=== PATIENT | female | born 1965 | race Hispanic/Latino ===

== ENCOUNTER 2021-06-18 07:49 | Inpatient (IN) | payer OTHER ==
--- NOTE | 2021-06-18 08:00 | Emergency Department Report ---
ED Neuro Deficit HPI - General Chief Complaint: Neuro Symptoms/Deficit Stated Complaint: STROKE Time Seen by Provider: 06/18/21 07:50 Source: EMS, old records reviewed (No previous [employer] record) Mode of arrival: Stretcher Limitations: Altered Mental Status - History of Present Illness Initial Comments: 55-year-old female the past medical history of obesity and hypertension presents to the hospital with possible stroke. At time a ED arrival patient is nonverbal therefore history obtained from EMS. EMS states that patient went to work about 6 AM with a "migraine". She was getting frustrated because she had some memory issues and could not remember passwords then went into experience right-sided weakness. EMS reports that patient then subsequently developed aphasia and is not speaking currently. Glucose 176 Although patient cannot speak she does not her head yes or no to questions. She states she was neurologically normal when she went to work at 6 AM. She does states she has a history of migraines. She does feel like her headache is secondary to migraine. She denies previous history of stroke, intracranial hemorrhage, and does not endorse current anticoagulation use - Related Data Allergies/Adverse Reactions: Allergies Allergy/AdvReac Type Severity Reaction Status Date / Time Penicillins Allergy Unknown Verified 06/18/21 09:20 ED Review of Systems ROS: Stated complaint: STROKE Other details as noted in HPI Comment: Unobtainable due to pts medical conditions ED Past Medical Hx - Past Medical History Hx Diabetes: Yes Additional medical history: Migraine ED Neuro Physical Exam - General Limitations: Altered Mental Status Suspected Stroke: Yes - NIHSS Assessment Interval: Baseline 1a. Level of Consciousness: alert/keenly responsive 1b. LOC Questions: aphasic 1c. LOC Commands: performs tasks correctly 2. Best Gaze: normal 3. Visual: no visual loss 4. Facial Palsy: normal symmetrical movement 5b. Motor Arm Right: no gravity effort 5a. Motor Arm Left: some gravity effort 6a. Motor Leg Left: some gravity effort 6b. Motor Leg Right: some gravity effort 7. Limb Ataxia: absent 8. Sensory: normal 9. Best Language: severe aphasia 10. Dysarthria: mute/anarrthric 11. Extinction/Inattention: no abnormality Total Score: 15 Stroke Severity: Moderate Stroke - Other Other exam information: General: No acute distress Head: Atraumatic Eyes: normal appearance ENT: Moist mucous membranes Neck: Normal appearance, no midline tenderness Chest: Clear to auscultation bilaterally CV: Regular rate and rhythm Abdomen: Soft, normal bowel sounds, nontender, nondistended, no rebound or guarding Back: Normal inspection Extremity: Normal inspection, full range of motion Neuro: See NIH stroke scale Psych: Appropriate behavior Skin: No rash ED Course Vital Signs 06/18/21 06/18/21 07:53 08:30 Temperature 98.9 F Pulse Rate 96 H Respiratory 20 Rate Blood Pressure 176/90 [Left] O2 Sat by Pulse 97 99 Oximetry - Reevaluation(s) Reevaluation #1: 06/18/21 08:46 06/18/21 08:46 PT CONSENTED FOR TPA, ORDERS PLACED nurse informed 06/18/21 09:10 PT NOW DOES NOT CONSENT FOR TPA AND DECLINES, SHE WAS ABLE TO WHISPER NO TO THE NURSES. I SUSPECT PSYCH/CONVERSION D/O OR COMPLEX MIGRAINE GIVEN INCONSISTENT NEURO EXAM AND B/L WEAKNESS R> L. pt will be treated with Benadryl, Toradol, and Reglan for complex migraine. Aspirin would also be ordered since she declines tPA until stroke evaluation can be completed - Consultations Consultation #1: 06/18/21 08:46 - Lab Data Result diagrams: 06/18/21 08:23 06/18/21 08:23 Lab Results 06/18/21 06/18/21 06/18/21 Range/Units 08:23 08:23 08:23 WBC 8.8 (4.5-11.0) K/mm3 RBC 5.15 H (3.65-5.03) M/mm3 Hgb 14.4 H (10.1-14.3) gm/dl Hct 44.8 H (30.3-42.9) % MCV 87 (79-97) fl MCH 28 (28-32) pg MCHC 32 (30-34) % RDW 13.7 (13.2-15.2) % Plt Count 352 (140-440) K/mm3 Lymph % (Auto) 14.1 (13.4-35.0) % [place]y % (Auto) 5.2 (0.0-7.3) % Eos % (Auto) 2.0 (0.0-4.3) % Baso % (Auto) 0.9 (0.0-1.8) % Lymph # (Auto) 1.2 (1.2-5.4) K/mm3 [place] # (Auto) 0.5 (0.0-0.8) K/mm3 Eos # (Auto) 0.2 (0.0-0.4) K/mm3 Baso # (Auto) 0.1 (0.0-0.1) K/mm3 Seg Neutrophils % 77.8 H (40.0-70.0) % Seg Neutrophils # 6.8 (1.8-7.7) K/mm3 PT 13.5 (12.2-14.9) Sec. INR 0.93 (0.87-1.13) Thrombin Time 17.7 (15.1-19.6) Sec. Sodium 136 L (137-145) mmol/L Potassium 4.5 (3.6-5.0) mmol/L Chloride 101.2 (98-107) mmol/L Carbon Dioxide 21 L (22-30) mmol/L Anion Gap 18 mmol/L BUN 22 H (7-17) mg/dL Creatinine 1.0 (0.6-1.2) mg/dL Estimated GFR 58 ml/min BUN/Creatinine Ratio 22 % Glucose 214 H (65-100) mg/dL Calcium 9.4 (8.4-10.2) mg/dL Total Bilirubin 0.30 (0.1-1.2) mg/dL AST 19 (5-40) units/L ALT 17 (7-56) units/L Alkaline Phosphatase 94 (35-129) units/L Total Creatine Kinase 75 (30-135) units/L CK-MB (CK-2) 1.7 (0.0-4.0) ng/mL CK-MB (CK-2) Rel Index 2.2 (0-4) Troponin T < 0.010 (0.00-0.029) ng/mL Total Protein 6.6 (6.3-8.2) g/dL Albumin 4.2 (3.9-5) g/dL Albumin/Globulin Ratio 1.8 % - EKG Data -: EKG Interpreted by Me EKG shows normal: sinus rhythm, ST-T waves (n osmtie) Rate: normal When compared to previous EKG there are: previous EKG unavailable - Radiology Data Radiology results: report reviewed CT HEAD WITHOUT CONTRAST INDICATION / CLINICAL INFORMATION: Stroke symptoms. TECHNIQUE: All CT scans at this location are performed using CT dose reduction for ALARA by means of automated exposure control. COMPARISON: None available. FINDINGS: HEMORRHAGE: No evidence of intracranial hemorrhage or extra-axial fluid collection. EXTRA-AXIAL SPACES: Cortical sulci, sylvian fissures and basilar cisterns have an unremarkable appearance. VENTRICULAR SYSTEM: The third and lateral ventricles are of normal size and configuration. CEREBRAL PARENCHYMA: No areas of abnormal brain parenchymal attenuation are identified. There is no indication of recent infarction. MIDLINE SHIFT OR HERNIATION: There is no mass effect. CEREBELLUM / BRAINSTEM: Brainstem and cerebellum have an unremarkable gav[place] earance. MIDLINE STRUCTURES:No abnormalities of the pituitary gland or pineal region are identified. INTRACRANIAL VESSELS:No abnormalities are identified on this noncontrast head CT. ORBITS: visualized portions of the orbits have an unremarkable appearance. SOFT TISSUES of HEAD: No significant abnormality. CALVARIUM: Evaluation of bone windows reveals no abnormalities. PARANASAL SINUSES / MASTOID AIR CELLS: Visualized portions of the paranasal sinuses are free from inflammatory mucosal disease. Mastoid air cells are normally pneumatized. IMPRESSION: 1. No no significant intracranial abnormality. CTA head with intravenous contrast CLINICAL HISTORY: stroke sx TECHNIQUE: 0.625 mm thick contiguous axial scans were obtained from the skull base to the skull vertex during rapid bolus administration of intravenous contrast material. Multiplanar r econstructions were produced in the coronal and sagittal planes. In addition 3 plane MIP instructio ns were produced and reviewed for this report. The axial source images and reconstructed images were reviewed for this report. CONTRAST DOSE REPORT: Omnipaque 350: 100 ml administered intravenously. All CT scans at this location are performed using CT dose reduction for ALARA by means of automated exposure control. FINDINGS: Internal carotid arteries:La, cavernous, opthalmic, clinoid and supraclinoid segments of the ICAs have an unremarkable appearance. Middle cerebral arteries:Normal and symmetrical M1 segments of the middle cerebral arteries are demonstrated. No abnormalities are seen on evaluation of the insular or opercular branches. Anterior cerebral arteries:Bilaterally symmetrical A1 segments are demonstrated. No abnormalities are seen along the course of the A2 segments or their visualized pericallosal branches. A large intact anterior communicating artery is demonstrated. Vertebral arteries:Bilaterally symmetrical vertebral arteries are demonstrated. Both vertebral arteries contribute to the basilar artery origin. Basilar artery:Basilar artery has an unremarkable appearance. Posterior cerebral arteries:Bilaterally symmetrical posterior cerebral arteries are identified. An intact right posterior communicating artery is identified. The left posterior communicating artery is not observed. [place] of [place]:Not intact. see above. Dural sinuses: Dural venous sinuses are well demonstrated on this exam. There is no evidence of dural sinus thrombosis. IMPRESSION: 1. No indication of large vessel occlusion or intracranial stenosis. CTA neck without and with intravenous contrast material CLINICAL HISTORY: stroke sx TECHNIQUE: Following acquisition of a timing bolus 0.625 mm thick contiguous axial scans were obtained from aortic arch to the skull base during rapid bolus intravenous contrast infusion. In addition to evaluation of axial source images multiplanar reconstructions were produced and reviewed for this report. 3 plane MIP reconstructions were produced and reviewed. Contrast dose report: Omnipaque 350: 100 ml, administered intravenously All CT examinations performed at this facility utilize modulated dose reduction, iterative reconstruction or weight-based dosing, as appropriate, to obtain a radiation dose which is as low as can reasonably be achieved. FINDINGS: Thoracic aorta: There is a common origin of the left common carotid artery and brachiocephalic artery. No significant abnormalities are identified along the course of the thoracic aorta..The origins of the great vessels have an unremarkable appearance. Brachiocephalic artery, left common carotid artery origin and left subclavian artery all have an unremarkable appearance with no indication of significant atherosclerotic disease in these locations Right carotid artery:No abnormalities are seen along the course of the RCCA, at the right carotid bifurcation or along the cervical portions of the ARKI. Left carotid artery: No abnormalities are noted along the course of the left common carotid artery, at the left carotid bifurcation or along the course of the cervical segments of the LICA. Posterior circulation:The vertebral arteries have an unremarkable appearance. Both vertebral arteries contribute to the basilar artery origin. The basilar artery has an unremarkable appearance. The degree of stenosis, if any, is determined utilizing NASCET like criteria. In this case there is no indication of hemodynamically significant stenosis at the carotid bifurcations or elsewhere. Evaluation of the nonvascular soft tissue structures reveal no abnormality. There is no indication of cervical lymphadenopathy. No abnormalities are seen along the course of the airway. Visualized p ortions of the parotid glands and the submandibular salivary glands have a normal appearance. Thyroid gland has a normal appearance. Evaluation of the lung apices reveals no evidence of lung nodule or infiltrate. Evaluation of the cervical spine revealed no significant abnormalities. IMPRESSION: 1. No indication of hemodynamically significant stenosis at the carotid bifurcations or elsewhere. - Medical Decision Making 55-year-old female presents to the hospital with headache with stroke symptoms. tPA recommended. Patient declined tPA. CT head unremarkable and CT angio does not show any large vessel occlusion. Meds for migraine and aspirin ordered. Plan to admit patient for stroke work-up. Hospitalist informed - Differential Diagnosis Complex migraine, conversion disorder, CVA, ICH Critical Care Time: Yes Critical care time in (mins) excluding proc time.: 35 Critical care attestation.: If time is entered above; I have spent that time in minutes in the direct care of this critically ill patient, excluding procedure time. Critical Care Time: 35 minutes of critical care time excluding procedures were used in the care of the patient. I came immediately to the bedside upon patient's arrival. I obtained history from EMS at the bedside. I discussed treatment plan with the nursing team members. I reviewed electronic record. Patient required multiple interventions and reassessments. Spoke with hospitalist and consultants for collaborative care ED Disposition Clinical Impression: Headache, Stroke-like symptoms, Diabetes Disposition: 09 ADMITTED INPATIENT Is pt being admited?: Yes Does the pt Need Aspirin: Yes Condition: Stable Instructions: Diabetes Mellitus Type 2 in Adults (ED) Time of Disposition: 09:23 (Dr jean-baptiste)
[2021-06-18 08:32] LABS: Basophils # (Auto) 0.1 K/mm3 (0.0-0.1); Basophils % (Auto) 0.9 % (0.0-1.8); Eosinophils # (Auto) 0.2 K/mm3 (0.0-0.4); Hematocrit 44.8 % (30.3-42.9); Hemoglobin 14.4 gm/dl (10.1-14.3); Lymphocytes # (Auto) 1.2 K/mm3 (1.2-5.4); Lymphocytes % (Auto) 14.1 % (13.4-35.0); Mean Corpuscular HGB Conc 32 % (30-34); Mean Corpuscular Volume 87 fl (79-97); Monocytes # (Auto) 0.5 K/mm3 (0.0-0.8); Monocytes % (Auto) 5.2 % (0.0-7.3); Platelet Count 352 K/mm3 (140-440); Red Blood Count 5.15 M/mm3 (3.65-5.03); Red Cell Distribution Width 13.7 % (13.2-15.2)
--- NOTE | 2021-06-18 08:33 | Cat Scan Report ---
CT HEAD WITHOUT CONTRAST INDICATION / CLINICAL INFORMATION: Stroke symptoms. TECHNIQUE: All CT scans at this location are performed using CT dose reduction for ALARA by means of automated e xposure control. COMPARISON: None available. FINDINGS: HEMORRHAGE: No evidence of intracranial hemorrhage or extra-axial fluid collection. EXTRA-AXIAL SPACES: Cortical sulci, sylvian fissures and basilar cisterns have an unremarkable appear ance. VENTRICULAR SYSTEM: The third and lateral ventricles are of normal size and configuration. CEREBRAL PARENCHYMA: No areas of abnormal brain parenchymal attenuation are identified. There is no i ndication of recent infarction. MIDLINE SHIFT OR HERNIATION: There is no mass effect. CEREBELLUM / BRAINSTEM: Brainstem and cerebellum have an unremarkable appearance. MIDLINE STRUCTURES:No abnormalities of the pituitary gland or pineal region are identified. INTRACRANIAL VESSELS:No abnormalities are identified on this noncontrast head CT. ORBITS: visualized portions of the orbits have an unremarkable appearance. SOFT TISSUES of HEAD: No significant abnormality. CALVARIUM: Evaluation of bone windows reveals no abnormalities. PARANASAL SINUSES / MASTOID AIR CELLS: Visualized portions of the paranasal sinuses are free from inf lammatory mucosal disease. Mastoid air cells are normally pneumatized. IMPRESSION: 1. No no significant intracranial abnormality. Signer Name: Renan Church MD Signed: 06/18/2021 8:29 AM Workstation Name: [id number]
--- NOTE | 2021-06-18 08:34 | Consultation ---
Medications and Allergies Allergies Allergy/AdvReac Type Severity Reaction Status Date / Time Unable to Assess Allergy Unverified 06/18/21 08:24 Physical Examination - Vital Signs Vital Signs: Vital Signs Pulse Resp BP Pulse Ox 96 H 20 176/90 97 06/18/21 07:53 06/18/21 07:53 06/18/21 07:53 06/18/21 07:53 Results - Laboratory Findings CBC and BMP: 06/18/21 08:23 Abnormal Lab Findings: Abnormal Labs 06/18/21 08:23 RBC 5.15 H Hgb 14.4 H Hct 44.8 H Seg Neutrophils % 77.8 H Assessment and Plan [facility] Consult Note # Demographics Consult Type: Acute Stroke Level 1 (0-4.5 hrs) Patient Location: Emergency Room First Name: Geeta Last Name: Joseph Age: 56 Gender: Female Facility: [facility] Time of Initial Page (Eastern Time): 06/18/2021, 07:44 Time of Return Call (Eastern Time): 06/18/2021, 07:47 # HPI History: 56F reportedly was at work 06:00, then with headache, trouble remembering things, then right weakness and stopped speaking. Unable to de termine if she takes medication. Aunt reportedly called the ED but contact information not available for her per staff. No POA/next of kin in [place] reportedly. Last well is reportedly 06:30 or so per EMS via co-workers. Last Known Normal: I have collected independent history specific to time last normal or last known well. We have collaborated with the provider and at this time, we have the most current timeline with the information that is available. # Scores Time of exam and NIHSS (Eastern Time): 06/18/2021, 07:53 Level of Consciousness 1a: [0] = Alert; keenly responsive LOC Questions 1b: [2] = Answers neither correctly LOC Commands 1c: [0] = Performs both tasks correctly Best Gaze 2: [0] = Normal Visual 3: [0] = No visual loss Facial Palsy 4: [0] = Normal symmetrical movements Motor Arm Left 5a: [0] = No drift Motor Arm Right 5b: [3] = No effort against gravity Motor Leg Left 6a: [0] = No drift Motor Leg Right 6b: [3] = No effort against gravity Limb Ataxia 7: [0] = Absent Sensory 8: [0] = Normal Best Language 9: [2] = Severe aphasia Dysarthria 10: [2] = Severe dysarthria Extinction and Inattention 11: [0] = No abnormality NIHSS Total: 12 # PMH-FH-SH Past Medical History: Diabetes # Data Time Head CT personally read by me ( Time): 06/18/2021, 08:[address]: no bleed preliminarily reviewed by me, please refer to radiology read for official re ading # Assessment Impression: Ischemic Stroke (Acute) disabling deficit. With available data, there is no contraindication to IV tPA treatment that I can idenfity. # Plan Thrombolytic/Intervention: IV Thrombolysis Thrombolytic Dosing: IV alteplase 0.9 mg/kg, max dose 90 mg; 10% of dose given o adeline 1 minute IVP, remaining 90% given as infusion over 1 hour Intraarterial Exclusion: other pending CTA head/neck. Time IV Thrombolytic Recommended (): 06/18/2021, 08:32 Imaging: (urgency: STAT): CT Angiogram Head and CT Angiogram Neck Imaging: (urgency: routine): MRI Brain without contrast Diagnostic Test: echo without bubble study Thrombolytic Administration Recommendations: Unable to obtain informed consent due to medical condition. No family available. In my opinion, benefits of IV thrombolytic therapy outweigh risks. I have collected independent history specific to time last normal or last known well. We have collaborated with the ED provider and at this time, we have the most current timeline with the information that is available. BP goal< 180/105 for 24hrs post Thrombolytic administration Use Labetolol 10-20mg IV prn or Nicardipine gtt to maintain BP parameters No antiplatelets or anticoagulants for next 24 hrs unless indicated for emergent IA procedure or other life threatening situation ICU admission Call back if there is any decline in neurological condition Other: LDL < 70 telemetry monitoring I have discussed my recommendations with the referring provider Additional Recommendations: If radiology identifies a large vessel occlusion on CTA head, please contact neuro-endovascular center for thrombectomy consideration. Otherwise can admit locally. Disposition: admit # [employer] Telemedicine: Interactive 2 way audio and visual telecommunication technology was utilized during this visit
[2021-06-18] MEDS ORDERED: SODIUM CHLORIDE 0.9% 50 ML IVPB IV ONE (08:40)
[2021-06-18] MEDS ORDERED: ALTEPLASE 100 MG INJ KIT IV ONE ×2 (08:40)
--- NOTE | 2021-06-18 08:45 | Cat Scan Report ---
CTA neck without and with intravenous contrast material CLINICAL HISTORY: stroke sx TECHNIQUE: Following acquisition of a timing bolus 0.625 mm thick contiguous axial scans were obtained from aort ic arch to the skull base during rapid bolus intravenous contrast infusion. In addition to evaluation of axial source images multiplanar reconstructions were produced and reviewed for this report. 3 mary ellen ne MIP reconstructions were produced and reviewed. Contrast dose report: Omnipaque 350: 100 ml, administered intravenously All CT examinations performed at this facility utilize modulated dose reduction, iterative reconstruc tion or weight-based dosing, as appropriate, to obtain a radiation dose which is as low as can reason ably be achieved. FINDINGS: Thoracic aorta: There is a common origin of the left common carotid artery and brachiocephalic artery . No significant abnormalities are identified along the course of the thoracic aorta..The origins of the great vessels have an unremarkable appearance. Brachiocephalic artery, left common carotid artery origin and left subclavian artery all have an unremarkable appearance with no indication of signific ant atherosclerotic disease in these locations Right carotid artery:No abnormalities are seen along the course of the RCCA, at the right carotid bif urcation or along the cervical portions of the ARIK. Left carotid artery: No abnormalities are noted along the course of the left common carotid artery, a t the left carotid bifurcation or along the course of the cervical segments of the LICA. Posterior circulation:The vertebral arteries have an unremarkable appearance. Both vertebral arteries contribute to the basilar artery origin. The basilar artery has an unremarkable appearance. The degree of stenosis, if any, is determined utilizing NASCET like criteria. In this case there is no indication of hemodynamically significant stenosis at the carotid bifurcations or elsewhere. Evaluation of the nonvascular soft tissue structures reveal no abnormality. There is no indication of cervical lymphadenopathy. No abnormalities are seen along the course of the airway. Visualized porti ons of the parotid glands and the submandibular salivary glands have a normal appearance. Thyroid gla nd has a normal appearance. Evaluation of the lung apices reveals no evidence of lung nodule or infil trate. Evaluation of the cervical spine revealed no significant abnormalities. IMPRESSION: 1. No indication of hemodynamically significant stenosis at the carotid bifurcations or elsewhere. Signer Name: Renan Church MD Signed: 06/18/2021 8:41 AM Workstation Name: [id number]
[2021-06-18 08:46] LABS: INR 0.93 (0.87-1.13); Thrombin Time 17.7 Sec. (15.1-19.6)
[2021-06-18] MEDS ORDERED: ALTEPLASE 100 MG INJ KIT ONE (08:48)
[2021-06-18 08:49] LABS: Creatine Kinase MB 1.7 ng/mL (0.0-4.0)
--- NOTE | 2021-06-18 08:50 | Cat Scan Report ---
CTA head with intravenous contrast CLINICAL HISTORY: stroke sx TECHNIQUE: 0.625 mm thick contiguous axial scans were obtained from the skull base to the skull vertex during r apid bolus administration of intravenous contrast material. Multiplanar reconstructions were produced in the coronal and sagittal planes. In addition 3 plane MIP instructions were produced and reviewed for this report. The axial source images and reconstructed images were reviewed for this report. CONTRAST DOSE REPORT: Omnipaque 350: 100 ml administered intravenously. All CT scans at this location are performed using CT dose reduction for ALARA by means of automated e xposure control. FINDINGS: Internal carotid arteries:La, cavernous, opthalmic, clinoid and supraclinoid segments of the ICAs have an unremarkable appearance. Middle cerebral arteries:Normal and symmetrical M1 segments of the middle cerebral arteries are demon strated. No abnormalities are seen on evaluation of the insular or opercular branches. Anterior cerebral arteries:Bilaterally symmetrical A1 segments are demonstrated. No abnormalities are seen along the course of the A2 segments or their visualized pericallosal branches. A large intact a nterior communicating artery is demonstrated. Vertebral arteries:Bilaterally symmetrical vertebral arteries are demonstrated. Both vertebral arteri es contribute to the basilar artery origin. Basilar artery:Basilar artery has an unremarkable appearance. Posterior cerebral arteries:Bilaterally symmetrical posterior cerebral arteries are identified. An i ntact right posterior communicating artery is identified. The left posterior communicating artery is not observed. [place] of [place]:Not intact. see above. Dural sinuses: Dural venous sinuses are well demonstrated on this exam. There is no evidence of dural sinus thrombosis. IMPRESSION: 1. No indication of large vessel occlusion or intracranial stenosis. Signer Name: Renan Church MD Signed: 06/18/2021 8:45 AM Workstation Name: [id number]
[2021-06-18 08:51] LABS: Alanine Aminotransferase 17 units/L (7-56); Albumin 4.2 g/dL (3.9-5); BUN/Creatinine Ratio 22; Blood Urea Nitrogen 22 mg/dL (7-17); Calcium 9.4 mg/dL (8.4-10.2); Hemolysis Index 29
[2021-06-18] MEDS ORDERED: METOCLOPRAMIDE 10 MG/2 ML INJ IV ONE (09:09)
[2021-06-18] MEDS ORDERED: diphenhydrAMINE 50 MG/ML VIAL IV ONE (09:09)
[2021-06-18] MEDS ORDERED: KETOROLAC 30 MG/1 ML INJ IV ONE (09:09)
[2021-06-18] MEDS ORDERED: ASPIRIN 325 MG TAB PO ONE (09:15)
[2021-06-18] MEDS ORDERED: MORPHINE 2 MG/1 ML INJ IV PRN (09:24)
[2021-06-18] MEDS ORDERED: ONDANSETRON 4 MG/2 ML INJ IV PRN (09:24)
[2021-06-18] MEDS ORDERED: ACETAMINOPHEN 325 MG TAB PO PRN (09:24)
[2021-06-18 09:26] LABS: Partial Thromboplastin Time 28.6 Sec. (24.2-36.6)
--- NOTE | 2021-06-18 11:49 | History and Physical Report ---
History of Present Illness Date of admission: 06/18/21 09:24 Chief complaint: Altered level of consciousness/metabolic encephalopathy/aphasia,, dysarthria History of present illness: 55-year-old female patient with significant past medical history of hypertension morbid obesity was brought to the hospital with altered level of consciousness, migraine headaches and aphasia/dysarthria .code stroke was called , telemetry neurologist evaluated the patient and recommended extensive neuro work-up .patient was not a candidate for tPA .CT head without contrast no acute abnormality. CT head and CTA neck did not show any hemodynamically significant stenosis or large vessel occlusion Patient also complains of some memory issues could not remember the password when she went for work, gradually worsening to aphasia, the time of my evaluation Initially patient mumbled some words however after few minutes could speak slowly, Patient never had similar symptoms in the past, no history of seizures loss of consciousness or syncopal episode Past History Past Medical History: diabetes, hypertension, other (Morbid obesity, migraine headaches) Past Surgical History: No surgical history Social history: denies: smoking, alcohol abuse Family history: no significant family history Medications and Allergies Allergies Allergy/AdvReac Type Severity Reaction Status Date / Time Penicillins Allergy Unknown Verified 06/18/21 09:35 Active Meds: Active Medications Acetaminophen (Acetaminophen 325 Mg Tab) 650 mg PO Q4H PRN PRN Reason: Pain MILD(1-3)/Fever >100.5/FLORES Morphine Sulfate (Morphine 2 Mg/1 Ml Inj) 2 mg IV Q4H PRN PRN Reason: Pain, Moderate (4-6) Ondansetron HCl (Ondansetron 4 Mg/2 Ml Inj) 4 mg IV Q8H PRN PRN Reason: Nausea And Vomiting Sodium Chloride (Sodium Chloride 0.9% 10 Ml Flush Syringe) 10 ml IV BID AIDAN Last Admin: 06/18/21 10:00 Dose: 10 ml Sodium Chloride (Sodium Chloride 0.9% 10 Ml Flush Syringe) 10 ml IV PRN PRN PRN Reason: LINE FLUSH Review of Systems ROS unobtainable: due to mental status Exam - Constitutional Vitals: Temp Pulse Resp BP Pulse Ox 98.9 F 82 16 166/91 95 06/18/21 08:30 06/18/21 09:31 06/18/21 09:31 06/18/21 09:31 06/18/21 09:31 General appearance: Present: mild distress, obese (Morbidly obese), other (Minimally communicative, not cooperative) - EENT Eyes: Present: PERRL, EOM intact - Neck Neck: Present: supple, normal ROM - Respiratory Respiratory effort: normal Respiratory: bilateral: diminished, negative: rales, rhonchi, wheezing - Cardiovascular Rhythm: regular Heart Sounds: Present: S1 & S2 - Extremities Extremities: no ischemia Extremity abnormal: edema (Trace) - Abdominal General gastrointestinal: Present: soft, non-tender, non-distended, normal bowel sounds - Integumentary Integumentary: Present: clear, warm - Musculoskeletal Musculoskeletal: right sided weakness, generalized weakness - Psychiatric Psychiatric: other (Minimally communicative, noncooperative) - Neurologic Neurologic: moves all extremities (Weakness of 4 extremities, unable to examine patient not cooperative) HEART Score - HEART Score Troponin: Troponin T < 0.010 ng/mL (0.00-0.029) 06/18/21 08:23 Results - Labs CBC & Chem 7: 06/18/21 08:23 06/18/21 08:23 Labs: Abnormal lab results 06/18/21 06/18/21 06/18/21 Range/Units 08:19 08:23 08:23 RBC 5.15 H (3.65-5.03) M/mm3 Hgb 14.4 H (10.1-14.3) gm/dl Hct 44.8 H (30.3-42.9) % Seg Neutrophils % 77.8 H (40.0-70.0) % Sodium 136 L (137-145) mmol/L Carbon Dioxide 21 L (22-30) mmol/L BUN 22 H (7-17) mg/dL Glucose 214 H (65-100) mg/dL POC Glucose 220 H (70-105) mg/dL Assessment and Plan -- Acute toxic metabolic encephalopathy; Patient unable to talk, not cooperative with the examination Neuro work-up, CT head, CTA head, CTA neck no acute abnormalities Check MRI brain, echocardiogram Physical therapy occupational therapy speech therapy Rehabilitation Neurology consult -- Possible CVA; neuro work-up so far negative Not a candidate for tPA, PT OT ST Aspirin and statin -- Morbid obesity; BMI 48.8 And patient is medically stable, patient needs to be on diet regulation Exercise as tolerated, and weight reduction -- DVT prophylaxis subcu Lovenox -- Full CODE STATUS; Unable to reach family Will try again tomorrow to get moved information as patient is uncooperative Unable to give history Closely monitor the patient and adjust management as needed Plan of care reviewed with the patient's nurse. Follow consultants evaluation and recommendations Will also consider psych evaluation/ Discharge planning per case management
[2021-06-18] MEDS ORDERED: NALOXONE 0.4 MG/1 ML INJ IV PRN (12:00)
--- NOTE | 2021-06-18 15:18 | Consultation ---
History of Present Illness Consult date: 06/18/21 Reason for Consult: Stroke Chief complaint: Weakness History of present illness: 55 yo right-handed female with htn, dm, obesity who presents with acute onset of aphasia, dysarthria, weakness of the right arm. She evaluated by telestroke service and no t-pa given. NCHCT revealed no acute ich; cta head/neck revealed no proximal lvo. Currently, the patient still notes frustration in expressing herself and is noted with dysarthria and significant right arm weakness. Past History Past Medical History: diabetes, hypertension Social history: no significant social history Family history: no significant family history Medications and Allergies Allergies Allergy/AdvReac Type Severity Reaction Status Date / Time Penicillins Allergy Unknown Verified 06/18/21 09:35 Active Meds: Active Medications Acetaminophen (Acetaminophen 325 Mg Tab) 650 mg PO Q4H PRN PRN Reason: Pain MILD(1-3)/Fever >100.5/FLORES Aspirin (Aspirin Ec 325 Mg Tab) 325 mg PO QDAY [facility] Atorvastatin Calcium (Atorvastatin 40 Mg Tab) 40 mg PO QHS [facility] Famotidine (Famotidine 20 Mg/2 Ml Inj) 10 mg IV BID [facility] Morphine Sulfate (Morphine 2 Mg/1 Ml Inj) 2 mg IV Q4H PRN PRN Reason: Pain, Moderate (4-6) Naloxone HCl (Naloxone 0.4 Mg/1 Ml Inj) 0.1 mg IV Q2MIN PRN PRN Reason: Res Rate </= 8 or 02 SAT < 92% Ondansetron HCl (Ondansetron 4 Mg/2 Ml Inj) 4 mg IV Q8H PRN PRN Reason: Nausea And Vomiting Sodium Chloride (Sodium Chloride 0.9% 10 Ml Flush Syringe) 10 ml IV BID [facility] Last Admin: 06/18/21 10:00 Dose: 10 ml Sodium Chloride (Sodium Chloride 0.9% 10 Ml Flush Syringe) 10 ml IV PRN PRN PRN Reason: LINE FLUSH Review of Systems All systems: negative (as per hpi (limited by expressive aphasia);) Physical Examination - Vital Signs Vital Signs: Vital Signs Pulse Resp BP Pulse Ox 96 H 20 176/90 97 06/18/21 07:53 06/18/21 07:53 06/18/21 07:53 06/18/21 07:53 - Physical Exam Narrative exam: Gen: nad, well-nourished; Head: normocephalic; Eyes: no gaze deviation but left gaze preference; no ptosis; ENT: normal vocalization but w/ slurred speech; CVS: warm and well-perfused; Pulm: no respiratory distress; GI: appears non-distended; Ext: no cyanosis appreciated at distal extremities; Skin: no acute rash at distal extremities; Heme: no pathologic ecchymosis appreciated at distal extremities; Neuro: alert, oriented to name, age, month, not year, +perseveration; +dysarthria, expressive>>>receptive aphasia w/ difficulty w/ complex commands, CN 2 - PERR to room light, visual lowe grossly intact, CN 3, 4, 6 - left gaze preference, CN 5 - facial sensation symmetric to light touch, CN 7 - facial mov ement with right facial droop, CN 8 - hearing grossly intact, CN 9, 10 - spontaneous swallow absent, CN 11 decreased rigth shoulder movement, CN 12 - tongue midline; Motor - at least 3/5 at RUE, at least 4/5 at LUE, at least 3-/5 at BLEs; Sensory - decreased to RLE to light touch, Cerebellar - fnf /hts difficulty secondary to dysphasia, Gait - deferred secondary to high fall risk; NIHSS (1a.) Level of Consciousness:0 (1b.) LOC Questions:0 (1c.) LOC Commands:1 (2.) Best Gaze:1 (3.) Visual:0 (4.) Facial Palsy:1 (5a.) Motor Arm, Left:0 (5b.) Motor Arm, Right:2 (6a.) Motor Leg, Left:1 (6b.) Motor Leg, Right:1 (7.) Limb Ataxia:0 (8.) Sensory:1 (9.) Best Language:1 (10.) Dysarthria:1 (11.) Extinction and Inattention:1 NIHSS Total Score: 11 Results - Laboratory Findings CBC and BMP: 06/18/21 08:23 06/18/21 08:23 Abnormal Lab Findings: Abnormal Labs 06/18/21 06/18/21 06/18/21 08:19 08:23 08:23 RBC 5.15 H Hgb 14.4 H Hct 44.8 H Seg Neutrophils % 77.8 H Sodium 136 L Carbon Dioxide 21 L BUN 22 H Glucose 214 H POC Glucose 220 H Assessment and Plan 55 yo right-handed female with htn, dm, obesity who presents with acute onset of aphasia, dysarthria, weakness of the right arm. Concern for partial L MCA territory infarction. 1. Acute Ischemic Stroke: ASA 325 mg PO qday, MRI Brain w/o contrast, CTA Head/Neck w/ & w/o contrast showed no proximal lvo, TTEcho, confirm LDL/HgbA1C/TSH/Covid-19/UDS, telemetry, NIHSS q4 hours; SBP goal 160-200 mmHg and DBP 80-100 mmHg for 72 more hours Statin therapy for a goal LDL of 70, when patient passes swallow evaluation. PT/OT/ST/Swallow evaluation. Long-term risk- factor modification, including a strict diet/exercise regimen for secondary stroke prophylaxis. 2. Hypertension - goal SBP 160-200 mmHg and DBP 80-100 mmHg for 72 more hours. 3. Diabetes Mellitus - maintain euglycemia. 4. Hyperlipidemia - goal LDL of 70 w/ statin therapy if no contraindications. 5. Acute Dysphasia, Dysarthria, Dysphagia - st / swallow evaluation/monitoring. 6. Acute Rt-sided weakness - pt/ot evaluation/monitoring. 7. Unsteady Gait - pt/ot evaluation/monitoring. Jonas Rodrigeuz MD Neurology [id number]
[2021-06-18] MEDS: INSULIN LISPRO 100 UNIT/ML SUB-Q SCH ×2 (16:48→21:58)
[2021-06-18] MEDS: FAMOTIDINE 20 MG/2 ML INJ IV SCH (21:54)
[2021-06-19 07:42] LABS: Hematocrit 43.7 % (30.3-42.9); Hemoglobin 14.4 gm/dl (10.1-14.3); Mean Corpuscular HGB Conc 33 % (30-34); Mean Corpuscular Volume 88 fl (79-97); Red Blood Count 4.99 M/mm3 (3.65-5.03); Red Cell Distribution Width 13.8 % (13.2-15.2)
[2021-06-19 08:04] LABS: Albumin 4.3 g/dL (3.9-5); Calcium 9.3 mg/dL (8.4-10.2); Chol/HDL Ratio 5.52 %
[2021-06-19] MEDS: INSULIN LISPRO 100 UNIT/ML SUB-Q SCH ×4 (08:40→22:00)
[2021-06-19 10:06] LABS: Basophils % (Manual) 0 % (0.0-1.8); Total Cells Counted 100
--- NOTE | 2021-06-19 10:06 | Magnetic Resonance Report ---
MR brain wo con INDICATION / CLINICAL INFORMATION: Possible CVA/metabolic encephalopathy, RT HAND WEAKNESS. TECHNIQUE: Multiplanar, multisequence MR images of the brain were obtained. COMPARISON: June 18, 2021 FINDINGS: INTRACRANIAL: Restricted diffusion seen within the left putamen and cueva radiata. No hemorrhage. Ve ntricular caliber is normal. No extra-axial collection. No mass. No herniation. Major intracranial v ascular flow voids are preserved. ORBITS: No significant abnormality of visualized orbits. SINUSES / MASTOIDS: Trace left mastoid effusion. No significant abnormality of visualized sinuses and mastoid air cells. ADDITIONAL FINDINGS: None. IMPRESSION: 1. Acute left putamen and cueva radiata infarction. Signer Name: Markie Ortega MD Signed: 06/19/2021 10:02 AM Workstation Name: [id number]
[2021-06-19 10:07] LABS: Stomatocytes Few
[2021-06-19 10:10] LABS: Poikilocytosis Few
[2021-06-19 10:11] LABS: Anisocytosis Few
[2021-06-19 10:15] LABS: Platelet Estimate Consistent w Auto
[2021-06-19 10:19] LABS: Platelet Count 310 K/mm3 (140-440)
--- NOTE | 2021-06-19 10:22 | Electrocardiograph Report ---
[facility] Test Date: 2021-06-18 Test Time: 08:19:58 Pat Name: VIGNESH MALDONADO Department: Room: A483 Gender: F Health Sciences Manager: GUSTABO : 1965 Requested By: EL COLBY Order Number: [id number] Reading MD: Josh Frazier Measurements Intervals [place] Rate: 94 P: 45 AL: 217 QRS: -1 QRSD: 92 T: 31 QT: 366 QTc: 459 Interpretive Statements Sinus rhythm Prolonged AL interval Low voltage, precordial leads No previous ECG available for comparison Electronically Signed On 06-19-2021 10:21:33 EDT by Josh Frazier
[2021-06-19] MEDS: FAMOTIDINE 20 MG/2 ML INJ IV SCH ×2 (10:42→22:01)
[2021-06-19] MEDS: ASPIRIN EC 325 MG TAB PO SCH (10:42)
[2021-06-19] MEDS ORDERED: INSULIN NPH/REGULAR 70/30 INJ SUB-Q ONE (18:04)
--- NOTE | 2021-06-19 18:06 | Progress Note ---
Assessment and Plan Assessment and plan: -- Acute toxic metabolic encephalopathy; upon admission Patient unable to talk, not cooperative with the examination Today patient is alert and awake oriented x3, clear speech Ambulated with PT and OT Neuro work-up CT head, CTA head, CTA neck no acute abnormalities MRI brain acute left putamen and cueva radiata infarction Echocardiogram; pending report Continue physical therapy occupational therapy speech therapy Neurology evaluation and recommendations noted and appreciated Possible discharge home tomorrow if stable --Acute left putamen and cueva radiata CVA: Not a candidate for tPA, PT OT ST Aspirin and statin, symptoms significantly improved --Type 2 diabetes mellitus; uncontrolled Accu-Cheks sliding scale coverage ADA diet Add long-acting insulin 70/30 Novolin Check A1c Diabetic education, nutrition education prior to discharge -- Morbid obesity; BMI 48.8 When patient is medically stable, patient needs to be on diet regulation Exercise as tolerated, and weight reduction -- DVT prophylaxis subcu Lovenox -- Full CODE STATUS; Patient's [id number] is at the bedside Plan of care reviewed with the patient and the [id number] and her nurse nurse Closely monitor the patient and adjust management as needed Plan of care reviewed with the patient's nurse. Follow consultants evaluation and recommendations Discharge planning per case management History Interval history: I seen and examined the patient today at the bedside Patient's chart and medications reviewed Patient is more alert and awake Clear speech patient's [id number] is at the bedside No new complaints Vital signs noted Hospitalist Physical - Constitutional Vitals: Temp Pulse Resp BP Pulse Ox 99.1 F 109 H 18 147/95 94 06/19/21 16:01 06/19/21 16:01 06/19/21 16:01 06/19/21 16:01 06/19/21 16:01 General appearance: Present: mild distress, obese (Morbidly obese), other (Minimally communicative, not cooperative) - EENT Eyes: Present: PERRL, EOM intact - Neck Neck: Present: supple, normal ROM - Respiratory Respiratory effort: normal Respiratory: bilateral: diminished, negative: rales, rhonchi, wheezing - Cardiovascular Rhythm: regular Heart Sounds: Present: S1 & S2 - Extremities Extremities: no ischemia, No edema - Abdominal General gastrointestinal: soft, non-tender, non-distended, normal bowel sounds - Integumentary Integumentary: Present: clear, warm - Psychiatric Psychiatric: appropriate mood/affect, cooperative - Neurologic Neurologic: moves all extremities, other (Slow speech) HEART Score - HEART Score Troponin: Troponin T < 0.010 ng/mL (0.00-0.029) 06/18/21 08:23 Results - Labs CBC & Chem 7: 06/19/21 07:17 06/19/21 07:17 Labs: Laboratory Last Values WBC 11.6 K/mm3 (4.5-11.0) H 06/19/21 07:17 RBC 4.99 M/mm3 (3.65-5.03) 06/19/21 07:17 Hgb 14.4 gm/dl (10.1-14.3) H 06/19/21 07:17 Hct 43.7 % (30.3-42.9) H 06/19/21 07:17 MCV 88 fl (79-97) 06/19/21 07:17 MCH 29 pg (28-32) 06/19/21 07:17 MCHC 33 % (30-34) 06/19/21 07:17 RDW 13.8 % (13.2-15.2) 06/19/21 07:17 Plt Count 310 K/mm3 (140-440) 06/19/21 07:17 Lymph % (Auto) 14.1 % (13.4-35.0) 06/18/21 08:23 Eagle % (Auto) 5.2 % (0.0-7.3) 06/18/21 08:23 Eos % (Auto) 2.0 % (0.0-4.3) 06/18/21 08:23 Baso % (Auto) 0.9 % (0.0-1.8) 06/18/21 08:23 Lymph # (Auto) 1.2 K/mm3 (1.2-5.4) 06/18/21 08:23 Eagle # (Auto) 0.5 K/mm3 (0.0-0.8) 06/18/21 08:23 Eos # (Auto) 0.2 K/mm3 (0.0-0.4) 06/18/21 08:23 Baso # (Auto) 0.1 K/mm3 (0.0-0.1) 06/18/21 08:23 Add Manual Diff Complete 06/19/21 07:17 Total Counted 100 06/19/21 07:17 Seg Neutrophils % 77.8 % (40.0-70.0) H 06/18/21 08:23 Seg Neuts % (Manual) 69.0 % (40.0-70.0) 06/19/21 07:17 Band Neutrophils % 0 % 06/19/21 07:17 Lymphocytes % (Manual) 21.0 % (13.4-35.0) 06/19/21 07:17 Reactive Lymphs % (Man) 0 % 06/19/21 07:17 Monocytes % (Manual) 7.0 % (0.0-7.3) 06/19/21 07:17 Eosinophils % (Manual) 3.0 % (0.0-4.3) 06/19/21 07:17 Basophils % (Manual) 0 % (0.0-1.8) 06/19/21 07:17 Metamyelocytes % 0 % 06/19/21 07:17 Myelocytes % 0 % 06/19/21 07:17 Promyelocytes % 0 % 06/19/21 07:17 Blast Cells % 0 % 06/19/21 07:17 Nucleated RBC % Not Reportable 06/19/21 07:17 Seg Neutrophils # 6.8 K/mm3 (1.8-7.7) 06/18/21 08:23 Seg Neutrophils # Man 8.0 K/mm3 (1.8-7.7) H 06/19/21 07:17 Band Neutrophils # 0.0 K/mm3 06/19/21 07:17 Lymphocytes # (Manual) 2.4 K/mm3 (1.2-5.4) 06/19/21 07:17 Abs React Lymphs (Man) 0.0 K/mm3 06/19/21 07:17 Monocytes # (Manual) 0.8 K/mm3 (0.0-0.8) 06/19/21 07:17 Eosinophils # (Manual) 0.3 K/mm3 (0.0-0.4) 06/19/21 07:17 Basophils # (Manual) 0.0 K/mm3 (0.0-0.1) 06/19/21 07:17 Metamyelocytes # 0.0 K/mm3 06/19/21 07:17 Myelocytes # 0.0 K/mm3 06/19/21 07:17 Promyelocytes # 0.0 K/mm3 06/19/21 07:17 Blast Cells # 0.0 K/mm3 06/19/21 07:17 WBC Morphology Not Reportable 06/19/21 07:17 Hypersegmented Neuts Not Reportable 06/19/21 07:17 Hyposegmented Neuts Not Reportable 06/19/21 07:17 Hypogranular Neuts Not Reportable 06/19/21 07:17 Smudge Cells Not Reportable 06/19/21 07:17 Toxic Granulation Not Reportable 06/19/21 07:17 Toxic Vacuolation Not Reportable 06/19/21 07:17 Dohle Bodies Not Reportable 06/19/21 07:17 Pelger-Huet Anomaly Not Reportable 06/19/21 07:17 Marisol Rods Not Reportable 06/19/21 07:17 Platelet Estimate Consistent w auto 06/19/21 07:17 Clumped Platelets Not Reportable 06/19/21 07:17 Plt Clumps, EDTA Not Reportable 06/19/21 07:17 Large Platelets Not Reportable 06/19/21 07:17 Giant Platelets Not Reportable 06/19/21 07:17 Platelet Satelliting Not Reportable 06/19/21 07:17 Plt Morphology Comment Not Reportable 06/19/21 07:17 RBC Morphology Not Reportable 06/19/21 07:17 Dimorphic RBCs Not Reportable 06/19/21 07:17 Polychromasia Not Reportable 06/19/21 07:17 Hypochromasia Not Reportable 06/19/21 07:17 Poikilocytosis Few 06/19/21 07:17 Anisocytosis Few 06/19/21 07:17 Microcytosis Few 06/19/21 07:17 Macrocytosis Not Reportable 06/19/21 07:17 Spherocytes Not Reportable 06/19/21 07:17 Pappenheimer Bodies Not Reportable 06/19/21 07:17 Sickle Cells Not Reportable 06/19/21 07:17 Target Cells Not Reportable 06/19/21 07:17 Tear Drop Cells Not Reportable 06/19/21 07:17 Ovalocytes Not Reportable 06/19/21 07:17 Stomatocytes Few 06/19/21 07:17 Helmet Cells Not Reportable 06/19/21 07:17 Perez-[place] Bodies Not Reportable 06/19/21 07:17 [place] Rings Not Reportable 06/19/21 07:17 [place] Cells Not Reportable 06/19/21 07:17 Bite Cells Not Reportable 06/19/21 07:17 Crenated Cell Not Reportable 06/19/21 07:17 Elliptocytes Not Reportable 06/19/21 07:17 Acanthocytes (Spur) Not Reportable 06/19/21 07:17 Rouleaux Not Reportable 06/19/21 07:17 Hemoglobin C Crystals Not Reportable 06/19/21 07:17 Schistocytes Not Reportable 06/19/21 07:17 Malaria parasites Not Reportable 06/19/21 07:17 Sloan Bodies Not Reportable 06/19/21 07:17 Hem Pathologist Commnt No 06/19/21 07:17 PT 13.5 Sec. (12.2-14.9) 06/18/21 08:23 INR 0.93 (0.87-1.13) 06/18/21 08:23 APTT 28.6 Sec. (24.2-36.6) 06/18/21 08:23 Thrombin Time 17.7 Sec. (15.1-19.6) 06/18/21 08:23 Sodium 138 mmol/L (137-145) 06/19/21 07:17 Potassium 4.7 mmol/L (3.6-5.0) 06/19/21 07:17 Chloride 103.1 mmol/L (98-107) 06/19/21 07:17 Carbon Dioxide 19 mmol/L (22-30) L 06/19/21 07:17 Anion Gap 21 mmol/L 06/19/21 07:17 BUN 21 mg/dL (7-17) H 06/19/21 07:17 Creatinine 1.0 mg/dL (0.6-1.2) 06/19/21 07:17 Estimated GFR 58 ml/min 06/19/21 07:17 BUN/Creatinine Ratio 21 % 06/19/21 07:17 Glucose 311 mg/dL (65-100) H 06/19/21 07:17 POC Glucose 384 mg/dL (70-105) H 06/19/21 16:02 Calcium 9.3 mg/dL (8.4-10.2) 06/19/21 07:17 Total Bilirubin 0.40 mg/dL (0.1-1.2) 06/19/21 07:17 AST 18 units/L (5-40) 06/19/21 07:17 ALT 16 units/L (7-56) 06/19/21 07:17 Alkaline Phosphatase 96 units/L (35-129) 06/19/21 07:17 Total Creatine Kinase 75 units/L (30-135) 06/18/21 08:23 CK-MB (CK-2) 1.7 ng/mL (0.0-4.0) 06/18/21 08:23 CK-MB (CK-2) Rel Index 2.2 (0-4) 06/18/21 08:23 Troponin T < 0.010 ng/mL (0.00-0.029) 06/18/21 08:23 Total Protein 6.7 g/dL (6.3-8.2) 06/19/21 07:17 Albumin 4.3 g/dL (3.9-5) 06/19/21 07:17 Albumin/Globulin Ratio 1.8 % 06/19/21 07:17 Triglycerides 218 mg/dL (2-149) H 06/19/21 07:17 Cholesterol 210 mg/dL (50-199) H 06/19/21 07:17 LDL Cholesterol Direct 139 mg/dL (50-130) H 06/19/21 07:17 HDL Cholesterol 38 mg/dL (40-59) L 06/19/21 07:17 Cholesterol/HDL Ratio 5.52 % 06/19/21 07:17 Microbiology: Microbiology 06/18/21 21:31 Peripheral/Venous Blood Culture - Preliminary Culture in Progress 06/18/21 21:31 Peripheral/Venous Blood Culture - Preliminary Culture in Progress [place]/IV: Voiding Method Toilet Active Medications - Current Medications Current Medications: Generic Name Dose Route Start Last Admin Trade Name Freq PRN Reason Stop Dose Admin Acetaminophen 650 mg 06/18/21 09:24 Acetaminophen 325 Mg Tab PO Q4H PRN Pain MILD(1-3)/Fever >100.5/FLORES Aspirin 325 mg 06/19/21 10:00 06/19/21 10:42 Aspirin Ec 325 Mg Tab PO 325 mg QDAY AIDAN Administration Atorvastatin Calcium 40 mg 05/02/22 22:00 06/18/21 21:54 Atorvastatin 40 Mg Tab PO 40 mg QHS AIDAN Administration Famotidine 10 mg 06/18/21 22:00 06/19/21 10:42 Famotidine 20 Mg/2 Ml Inj IV 10 mg BID AIDAN Administration Insulin Human Isoph/Insulin Regular 20 unit 06/20/21 08:00 Insulin Nph/Regular 70/30 Inj SUB-Q BIDDIAB AIDAN Insulin Human Isoph/Insulin Regular 20 unit 06/19/21 18:04 Insulin Nph/Regular 70/30 Inj SUB-Q 06/19/21 18:05 ONCE ONE Insulin Human Lispro 0 unit 06/18/21 16:30 06/18/21 21:58 Insulin Lispro 100 Unit/Ml SUB-Q 3 unit ACHS AIDAN Administration Protocol Morphine Sulfate 2 mg 06/18/21 09:24 Morphine 2 Mg/1 Ml Inj IV Q4H PRN Pain, Moderate (4-6) Naloxone HCl 0.1 mg 06/18/21 12:00 Naloxone 0.4 Mg/1 Ml Inj IV Q2MIN PRN Res Rate </= 8 or 02 SAT < 92% Ondansetron HCl 4 mg 06/18/21 09:24 Ondansetron 4 Mg/2 Ml Inj IV Q8H PRN Nausea And Vomiting Sodium Chloride 10 ml 06/18/21 10:00 06/18/21 22:00 Sodium Chloride 0.9% 10 Ml Flush Syringe IV 10 ml BID AIDAN Administration Sodium Chloride 10 ml 06/18/21 09:24 Sodium Chloride 0.9% 10 Ml Flush Syringe IV PRN PRN LINE FLUSH
[2021-06-20] MEDS: INSULIN LISPRO 100 UNIT/ML SUB-Q SCH ×3 (08:22→16:14)
[2021-06-20] MEDS: INSULIN NPH/REGULAR 70/30 INJ SUB-Q SCH ×2 (08:23→16:14)
[2021-06-20 09:11] VITALS: BP 155/88
[2021-06-20] MEDS ORDERED: FAMOTIDINE 10 MG TAB PO SCH (10:00)
[2021-06-20] MEDS: ASPIRIN EC 325 MG TAB PO SCH (10:29)
--- NOTE | 2021-06-20 13:25 | Discharge Summary ---
Providers - Providers Date of Admission: 06/18/21 09:24 Date of discharge: 06/20/21 Attending physician: JANEY HENRY 06/18/21 11:49 Consult to Physician [CONS] Routine Comment: Consulting Provider: CHRISTINA BURNS Physician Instructions: Reason For Exam: Possible CVA/metabolic encephalopathy 06/18/21 17:40 Occupational Therapy Evaluate and Treat [CONS] Routine Comment: Reason For Exam: Possible CVA/evaluate and treat/discharge needs Physical Therapy Evaluation and Treat [CONS] Routine Comment: Reason For Exam: Possible CVA/evaluate and treat/discharge needs Speech Therapy Evaluation and Treat [CONS] Routine Reason For Exam: Possible CVA/evaluate and treat Primary care physician: HARMONICA MAKER Hospitalization Condition: Stable Pertinent studies: Neuro work-up CT head, CTA head, CTA neck no acute abnormalities MRI brain acute left putamen and cueva radiata infarction Echocardiogram; pending report Hospital course: Discharge diagnosis; -- Acute toxic metabolic encephalopathy; upon admission Patient unable to talk, not cooperative with the examination Today patient is alert and awake oriented x3, clear speech Ambulated with PT and OT Neuro work-up CT head, CTA head, CTA neck no acute abnormalities MRI brain acute left putamen and cueva radiata infarction Echocardiogram; pending report Continue physical therapy occupational therapy speech therapy Neurology evaluation and recommendations noted and appreciated Possible discharge home tomorrow if stable --Acute left putamen and cueva radiata CVA: Not a candidate for tPA, PT OT ST Aspirin and statin, symptoms significantly improved --Dyslipidemia --Type 2 diabetes mellitus; uncontrolled/A1c 9.6 Accu-Cheks sliding scale coverage ADA diet Add long-acting insulin 70/30 Novolin Diabetic education, nutrition education prior to discharge -- Morbid obesity; BMI 48.8 When patient is medically stable, patient needs to be on diet regulation Exercise as tolerated, and weight reduction -- DVT prophylaxis subcu Lovenox Disposition: 06 HOME HEALTH CARE SERVICE Final Discharge Diagnosis (Prints w/discharge instructions): Acute toxic metabolic encephalopathy/present on admission resolved. Acute left putamen and cueva radiator stroke/CVA. Type 2 diabetes mellitus uncontrolled. Morbid obesity BMI 48.8. Possible obstructive sleep apnea. Dyslipidemia Time spent for discharge: 40 min Core Measure Documentation - Palliative Care Palliative Care/ Comfort Measures: Not Applicable Exam - Constitutional Vitals: Temp Pulse Resp BP Pulse Ox 97.9 F 92 H 18 155/88 98 05/04/22 07:35 06/20/21 11:30 06/20/21 07:35 06/20/21 07:35 06/20/21 11:30 Plan Activity: advance as tolerated, fall precautions Diet: diabetic, other (Cardiac diet) Special Instructions: physical therapy (Home physical therapy) Additional Instructions: If you have worsening symptoms contact MD or go to the nearest emergency room as needed. Advised to follow primary care physician in 1 week. Advised to follow private neurologist in 1 week to 10 days. Advised to comply with medications, diet, follow-up visits per schedule. Advised diet modification, exercise as tolerated and weight reduction when you are medically stable. Strongly recommend to see private adult health clinical nurse specialist for better control of your blood sugars Follow up with: PRIMARY MD ABIMAEL [Primary Care Provider] - 7 Days CHEPE OREILLY MD [Staff Physician] - 10 Days Prescriptions: Aspirin EC [Ecotrin] 325 mg PO QDAY #30 tablet AtorvaSTATin [Lipitor] 40 mg PO QHS #30 tablet Famotidine [Pepcid] 10 mg PO BID #60 tablet Other Discharge Orders: Speech Therapy (Amb) Location: None Selected
== END 2021-06-20 16:24 | disposition home or self-care (01) | DRG 64 ==
LOC: ED 07:49 → 4A 09:24 → 3A 17:14 → 4A 17:16
PROVIDERS: ADMIT Internal Medicine; ATTEND Internal Medicine
DX: I63.9 Cerebral infarction, unspecified (principal); G93.41 Metabolic encephalopathy; Z68.42 Body mass index [BMI] 45.0-49.9, adult; E11.9 Type 2 diabetes mellitus without complications; R29.90 Unspecified symptoms and signs involving the nervous system; E66.01 Morbid (severe) obesity due to excess calories; Z71.3 Dietary counseling and surveillance; Z88.0 Allergy status to penicillin; G43.909 Migraine, unspecified, not intractable, without status migrainosus; I10 Essential (primary) hypertension; E78.5 Hyperlipidemia, unspecified
CPT/HCPCS: 36415; 70450; 70496; 70498; 70551; 80053; 80061; 82550; 82553; 82962; 83036; 84484; 85007; 85025; 85610; 85670; 85730; 87040; 93005; 93306; 96374; 99291; G0378; J3490; Q0177; Q9967; C8929; J1815; J1885; J2997